=== PATIENT | male | born 1985 | race Caucasian/White ===

== ENCOUNTER 2018-12-01 16:23 | Inpatient (IN) ==
[2018-12-01 17:52] LABS: HEMATOCRIT 41.3 % (42.0-52.0); HEMOGLOBIN 13.6 g/dL (14.0-18.0); MCH 30.5 PG (27-31); MCHC 32.9 g/dL (33-37); MCV 92.6 FL (81-99); MPV 8.4 FL (7.4-10.4); RBC 4.46 XMIL (4.7-6.1); RDW 12.9 % (11.5-14.5); WBC 7.69 X1000 (4.8-10.8)
[2018-12-01 18:29] LABS: AGAP 12; ALB/GLOB RATIO 1.4; ALBUMIN 4.4 g/dL (3.5-5.0); ALKALINE PHOSPHATASE 73 U/L (32-122); BUN 15 mg/dL (8-22); CALCIUM 9.1 mg/dL (8.8-10.2); CHLORIDE 103 mmol/L (98-107); COSMO 280; ESTIMATED GFR > 60; GLUCOSE 88 mg/dL (70-104); GOT 19 U/L (10-34); GPT 29 U/L (10-44); POTASSIUM 4.1 mmol/L (3.5-5.1); SODIUM 140 mmol/L (136-145); TCO2 25 mmol/L (25-35); TOTAL BILIRUBIN < 0.15 mg/dL (0.20-1.00); TOTAL PROTEIN 7.5 g/dL (6.3-8.3)
[2018-12-01] MEDS ORDERED: TYLENOL PO PRN (18:38)
[2018-12-01] MEDS ORDERED: ZOFRAN PO PRN (18:41)
[2018-12-01] MEDS: D5 1/2 NS 1,000 ML IV SCH (19:05)
[2018-12-01] MEDS: NORCO-10 PO PRN (20:37)
[2018-12-01] MEDS: MAXIPIME 2 GM in NS 100 ML IV SCH (20:53)
[2018-12-01 21:27] LABS: URINE SOURCE CLEAN CATCH
[2018-12-01 21:42] LABS: BILIRUBIN URINE NEGATIVE (NEGATIVE); BLOOD URINE NEGATIVE (NEGATIVE); COLOR YELLOW; GLUCOSE URINE NEGATIVE (NEGATIVE); KETONE URINE NEGATIVE (NEGATIVE); LEUKOCYTES URINE NEGATIVE (NEGATIVE); NITRITE URINE NEGATIVE (NEGATIVE); PH URINE 6.5; PROTEIN URINE TRACE mg/dL (NEGATIVE); SP GRAVITY URINE 1.023; TURBIDITY URINE CLEAR (CLEAR); UROBILINOGEN URINE NORMAL (NORMAL)
[2018-12-01 21:44] LABS: UR EPITHELIAL CELLS <10 /HPF (<10); URINE BACTERIA NEGATIVE /HPF; URINE RBC <10 /HPF (<10); URINE WBC <10 /HPF (<10)
[2018-12-02] MEDS: MAXIPIME 2 GM in NS 100 ML IV SCH (08:04)
[2018-12-02] MEDS ORDERED: MAXIPIME 2 GM in NS 100 ML IV SCH ×2 (09:00→16:00)
--- NOTE | 2018-12-02 09:21 | INFECTIOUS DISEASE CONSULT REP ---
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 In part, it may be due to the fact that he is on his feet quite a bit. He works at [employer], and the feeling was that his shoes that he wears might be colonized with Pseudomonas and causing him to have an infection of both feet. The patient also is a cigarette smoker, and possibly due to the vascular affects of smoking, the antibiotic that we have given him in the past for Pseudomonas may not be present in high enough doses due to the vascular affects of cigarette smoking. PAST MEDICAL HISTORY/REVIEW OF SYSTEMS: Eyes and ears: No difficulty seeing or hearing. Respiratory: No cough or shortness of breath. Cardiac: No chest pain or palpitations. GI: No nausea, vomiting, or diarrhea. Genitourinary: No dysuria or flank pain. Endocrine: The patient is not a diabetic, and he does not have thyroid disease. Bones, joints, muscles : No swollen joints or myalgias. Neurologic: No seizures. No recent loss of motor or sensory function. Integument: See present illness. PREVIOUS HOSPITALIZATIONS AND OPERATIONS: He has been admitted before with infection of his feet as mentioned above. He also was admitted to the hospital because of a tooth infection. He had a fracture of his left arm and required surgery, which included having a plate and screws put on his arm. MEDICAL DISEASES: Positive for obesity. Negative for diabetes. INFECTIOUS DISEASE HISTORY: Positive for recurrent foot infections. Negative for pneumonia and UTI. FAMILY HISTORY: Positive for diabetes mellitus, hypertension, myocardial infarction, stroke, and cancer. SOCIAL HISTORY: The patient lives in [place]. He works at [employer]. He smokes cigarettes and drinks alcoholic beverages, but does not abuse drugs. He is . He has cats and a dog for pets. ALLERGIES: As mentioned above, he is allergic to penicillin, but he has tolerated Keflex and cefepime well in the past. HOME MEDICATIONS: The patient takes aspirin/acetaminophen-caffeine. He also takes Zantac. PHYSICAL EXAMINATION: Vital Signs: Temperature is 97.8 degrees, pulse 76, respirations 16, blood pressure 130/93. The patient is 5 feet 6 inches tall, weighs 256 pounds. General: This is an obese, young male. He is in no acute distress. HEENT: He can hear my spoken words and see near objects. He does not have any white patches on his tongue. Neck: No stiffness. Lungs: Clear to auscultation. Cardiovascular: Regular heart rate. Peripheral pulses are palpable. Abdomen: Soft and nontender. Extremities: Both feet have skin that is peeling off the feet. The underlying tissue is dark red in color. There is no odor to his feet, and I did not see any purulence. Neurologic: The patient is alert. He can move his extremities. There is no tremor. His sensation is intact to touch. His memory, as regarding his medical history , was good. CONCLUSION: The patient is admitted to the hospital with recurrent Pseudomonas infection of both feet. He is scheduled to have surgery today by Dr. Lagunas. RECOMMENDATION: I switched the patient from cefepime to ceftazidime because the latter antibiotic has a lower RADHA against Pseudomonas. As mentioned above, I switched the patient to ceftazidime. I have requested that the nurse observe the patient during the first dose. The patient is allergic to penicillin. He had angioedema and urticaria. However, he has received cefepime in the past, and in fact, he has had 2 doses of cefepime already in the hospital here, and he has also had Keflex before, and he tolerates them all very well, so I suspect he will tolerate ceftazidime as well , and just to make sure everything goes okay, I have requested that the nurse observe the patient during the first dose of ceftazidime. Thank you for the consult. cc: MD Solitario Moran MD MTDD
[2018-12-02] MEDS ORDERED: SUFENTA ONE (10:12)
[2018-12-02] MEDS ORDERED: DIPRIVAN 1% ONE (10:12)
[2018-12-02] MEDS ORDERED: DECADRON ONE (10:42)
[2018-12-02] MEDS ORDERED: ZOFRAN ONE (10:42)
[2018-12-02] MEDS ORDERED: MORPHINE ONE ×3 (11:16→11:36)
[2018-12-02] MEDS ORDERED: LR 500 ML ONE (11:27)
[2018-12-02] MEDS: NORCO-10 ONE (11:32)
--- NOTE | 2018-12-02 11:40 | OPERATIVE NOTE ---
PROCEDURE DATE: 12/02/2018 PREOPERATIVE NOTE: Recurrent Pseudomonas infection both feet, right worse than left. PROCEDURE: Debridement. DESCRIPTION OF PROCEDURE: The patient was brought to the operating room. After satisfactory induction of IV and LMA anesthesia, both feet were prepped and draped in the appropriate manner. On examination, the skin is excoriated between all 5 toes as well as on the distal forefoot with necrotic skin and red, angry sub-dermis. There is no full-thickness, no muscle or subcutaneous involvement seen. The left foot is similar, but not quite as severe. Both feet were debrided of necrotic skin and scrubbed with Betadine scrub brushes. Betadine- soaked Kerlix was subsequently threaded in between the toes and wrapped and covered with another Kerlix. Patient was subsequently awakened and extubated in the operating room and transferred to Recovery. There was no blood loss. cc: Solitario Lagunas MD
[2018-12-02] MEDS ORDERED: NS 250 ML ONE (13:55)
[2018-12-02] MEDS: NORCO-10 PO PRN ×3 (14:12→22:12)
[2018-12-02 14:48] LABS: INR 0.86; PROTIME 12.5 Seconds (11.0-16.0)
[2018-12-02] MEDS: TAZIDIME 2 GM/NS 2 GM/100 ML IVPB IV SCH (16:19)
[2018-12-02] MEDS: D5 1/2 NS 1,000 ML IV SCH (19:15)
[2018-12-02] MEDS: PERIDEX MT SCH (22:11)
[2018-12-03] MEDS: TAZIDIME 2 GM/NS 2 GM/100 ML IVPB IV SCH ×3 (00:35→15:17)
[2018-12-03] MEDS: NORCO-10 ONE (04:15)
[2018-12-03] MEDS: NORCO-10 PO PRN ×2 (08:34→12:32)
[2018-12-03] MEDS: PERIDEX MT SCH (08:35)
--- NOTE | 2018-12-03 09:26 | INFECTIOUS DISEASE PROGRESS NO ---
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 Yesterday, he underwent debridement of both feet, performed by Dr. Lagunas. The patient is going to have a PICC installed today, and sent home on ceftazidime 2 grams IV every 8 hours for 2 weeks. Then, I have requested that the patient come to my office in 2 weeks for a followup appointment. At the time of the followup appointment, if the patient's feet look really good, we will stop the antibiotic and remove the PICC. However, if more antibiotics are needed, then we will continue with the IV antibiotics. Unfortunately, the organism is resistant to Levaquin, so we will treat the patient's patient's pseudomonas with IV ceftazidime. cc: MD Solitario Moran MD MTDD
[2018-12-03 11:34] VITALS: BP 141/79
== END 2018-12-03 16:56 | disposition home health service (06) | DRG 603 ==
LOC: 4N 16:23
PROVIDERS: ADMIT Surgery; ATTEND Surgery
CPT/HCPCS: 36569; 80053; 81001; 85027; 85610; 94761; 94799; A9270; J0692; J0713; J1100; J2270; J2405; J7050; J7120

== ENCOUNTER 2019-02-10 17:04 | Inpatient (IN) ==
[2019-02-10 17:32] LABS: BASO# 0.03 X1000 (0.0-0.2); BASO% 0.6 % (0.0-0.8); EOS# 0.39 X1000 (0.0-0.7); EOS% 7.2 % (0.0-10.0); HEMATOCRIT 44.3 % (42.0-52.0); HEMOGLOBIN 15.1 g/dL (14.0-18.0); LYMPH# 2.23 X1000 (1.2-3.4); LYMPH% 41.4 % (20.5-51.1); MCH 29.7 PG (27-31); MCHC 34.1 g/dL (33-37); MCV 87.2 FL (81-99); MONO# 0.39 X1000 (0.11-0.59); MONO% 7.2 % (1.7-9.3); MPV 8.7 FL (7.4-10.4); NEUT# 2.35 X1000 (1.4-6.5); NEUT% 43.6 % (42.2-75.2); PLT 397 X1000 (130-400); RBC 5.08 XMIL (4.7-6.1); RDW 12.7 % (11.5-14.5); WBC 5.39 X1000 (4.8-10.8)
[2019-02-10 17:45] LABS: AGAP 13; ALB/GLOB RATIO 1.4; ALBUMIN 4.7 g/dL (3.5-5.0); ALKALINE PHOSPHATASE 78 U/L (32-122); BUN 14 mg/dL (8-22); CALCIUM 9.6 mg/dL (8.8-10.2); CHLORIDE 101 mmol/L (98-107); COSMO 276; CREATININE 0.8 mg/dL (0.7-1.2); ESTIMATED GFR > 60; GLUCOSE 88 mg/dL (70-104); GOT 34 U/L (10-34); GPT 50 U/L (10-44); SODIUM 138 mmol/L (136-145); TCO2 24 mmol/L (25-35); TOTAL BILIRUBIN 0.31 mg/dL (0.20-1.00)
[2019-02-10] MEDS ORDERED: LOVENOX 1 MG/KG SUBQ ONE (19:42)
[2019-02-10] MEDS ORDERED: LOVENOX SUBQ ONE (20:00)
--- NOTE | 2019-02-10 21:33 | Diag Imaging Result Doc PS360 ---
EXAM: CT ANGIOGRM PULMONARY ARTERIES 02/10/2019 HISTORY: SOB TECHNIQUE: This exam was performed using automated exposure control, adjustment of mA or kV according to patient size, and/or use of iterative reconstruction technique. COMMENT: 3-D MIPS were performed. There are no previous studies available for comparison. There are no filling defects in the pulmonary arteries. The aorta is not distended and there is no evidence of dissection. There are no abnormal fluid collections. There is no evidence of significant adenopathy. There is what appears to be a granuloma posteriorly in the left upper lobe on image 43 there is no evidence of acute pulmonary parenchymal disease. There is minimal dependent atelectasis. The regional skeleton appears to be intact. IMPRESSION: No evidence of pulmonary emboli. Electronically signed by Ari Sanders 02/10/2019 9:30 PM
[2019-02-10] MEDS ORDERED: DEPO-MEDROL IM ONE (22:06)
--- NOTE | 2019-02-10 22:14 | PROVIDER DOCUMENTATION ---
This chart was entered by Estella Clifton Scribe, acting as scribe for Juan Glass MD. HPI-General Adult - General Chief Complaint: General Adult Stated Complaint: INFECTION? DR WOODY REFERRAL Time Seen by Provider: 02/10/19 19:15 Source: patient Allergies/Adverse Reactions: Patient Allergies Allergy/AdvReac Type Severity Reaction Status Date / Time Penicillins Allergy SWELLING Verified 05/12/18 19:43 Home Medications: Home Medication List Medication Instructions Recorded Confirmed Last Taken Type Ranitidine [Zantac] 150 tab PO DAILY 05/12/18 01/23/19 01/23/19 History Ibuprofen 200 mg PO DAILY PRN 01/23/19 01/23/19 01/23/19 History - History of Present Illness -Gen Adult Nature of Presenting Problems: 33 yom c/o pt has hx of bilat cellulitis and had 2x sx; one in sep 2018 and another in nov 2018. pt is followed by dr. woody. pt had picc line and was taking cefazolin x 2 weeks, pt noticed [id number] last night he was starting to get rash on arms, chest and shoulders. pt had home health come in this am and change picc line and after seeing rash, homehealth referred him to dr. woody and dr. woody's office told pt to come to er. pt had picc line removed and ultrasound done on left arm and it showed a clot. pt woke up this am w/chest tightness, throat tightness, cough and sob. pt also takes heparin x 4 and ibuprofen. pt denies fever and chills. Review of Systems - Adult - REVIEW OF SYSTEMS - ADULT Constitutional: reports: no symptoms reported. denies: chills, fever, fatique Eyes: reports: no symptoms reported Ears, Nose, Mouth & Throat: reports: see HPI, throat pain (tightness). denies: ear pain, sinus problem, nose pain, loose teeth Cardiovascular: reports: see HPI, chest pain (tightness). denies: heart murmur, irregular heart rate, orthopnea Respiratory: reports: see HPI, cough, shortness of breath. denies: dyspnea on exertion, excessive sputum production, hemoptysis Gastrointestinal: reports: no symptoms reported. denies: abdominal pain, diarrhea, nausea, vomiting Genitourinary: reports: no symptoms reported. denies: dysuria, discharge, frequency Musculoskeletal: reports: no symptoms reported Integumentary: reports: see HPI, rash (erythemic rash on bilat arms, chest, shoulders, back and bilat feet.). denies: hives, itching, skin sores/ulcer, skin thickening Neurological: reports: no symptoms reported Psychiatric: reports: no symptoms reported Endocrine: reports: no symptoms reported Hematologic/Lymphatic: reports: no symptoms reported Allergic/Immunologic: reports: no symptoms reported All Other Systems: Reviewed and Negative Past History - Adult - PAST MEDICAL HISTORY-ADULT Review of Records: reports: Old Records Reviewed, Nursing Assessment Review, Medications Reviewed, Social history reviewed & non-contributory. Major Childhood Illnesses: reports: denies history Cardiovascular: reports: HTN Respiratory: reports: denies history Gastrointestinal: reports: GERD Obstetrical/Gynecological: reports: denies history Genitourinary: reports: denies history Musculoskeletal: reports: denies history Neurological: reports: denies history Endocrine/Immune: reports: denies history Other Conditions: reports: other (cellulitis bilat toes) - PRIOR SURGERIES/PROCEDURES Surgical/Procedure History: reports: other - IMMUNIZATION STATUS Childhood Immunizations: See Nurse Assessment Flu Vaccine: See Nurse Assessment - FAMILY HISTORY Family History: reviewed, not pertinent - SOCIAL HISTORY Smoking: cigarettes, other (former) Substance Use: alcohol Alcohol Use Frequency: occasionally Physical Exam-General - PHYSICAL EXAM-ADULT Initial Vital Signs Reviewed: Yes - CONSTITUTIONAL General Appearance: appears well, alert, no apparent distress, obese. negative: cachetic, anxious, obtunded - EYES Eyes: PERRL/EOMI, pink conjunctivae - HEAD, EARS, NOSE, MOUTH & THROAT HENMT: normocephalic/atraumatic, moist mucous membranes, normal ENT inspection, TMs normal, pharynx normal. negative: angioedema, pharyngeal erythema, tonsillar exudate - NECK Neck: non-tender, full range of motion, supple, normal inspection - RESPIRATORY Respiratory: chest non-tender, lungs clear, normal breath sounds, no pleuratic chest pain, no respiratory distress, no accessory muscle use. negative: respiratory distress, decreased breath sounds, accessory muscle use - CARDIOVASCULAR Cardiovascular: normal peripheral pulses, regular rate, rhythm, no edema, no gallop, no JVD, no murmur. negative: JVD, bradycardia, tachycardia - GASTROINTESTINAL (ABDOMEN) Abdominal Exam: normal bowel sounds, non tender, soft - LYMPHATIC Lymphatic: no adenopathy - MUSCULOSKELETAL Back Exam: normal inspection, no CVA tenderness, no vertebral tenderness Extremity: normal range of motion, non-tender, normal inspection Peripheral Pulses: radial (R): 2+, radial (L): 2+ - SKIN Integumentary: normal color, normal turgor, warm/dry, erythema (erythematic rash on chest, bilat feet, arms, back and shoulders), rash. negative: ecchymosis, swelling, tenderness - NEUROLOGIC Neurologic: grossly normal, no motor/sensory deficits - PSYCHIATRIC Psych/Mental Status: normal mood/affect, normal thought content, normal thought process, oriented x 3 Progress - PLAN OF CARE/RESULTS Progress/Plan/Lab Results: Vital Signs - 8 hr 02/10/19 17:10 Temperature 98.5 F Pulse Rate 81 Respiratory Rate 20 Blood Pressure 135/87 O2 Sat by Pulse Oximetry 98 Laboratory Results - last 24 hr 02/10/19 02/10/19 17:15 17:15 WBC 5.39 RBC 5.08 Hgb 15.1 Hct 44.3 MCV 87.2 MCH 29.7 MCHC 34.1 RDW Std Deviation 12.7 Plt Count 397 MPV 8.7 Immature Gran % (Auto) 0.0 Neut % (Auto) 43.6 Lymph % (Auto) 41.4 Bourbon % (Auto) 7.2 Eos % (Auto) 7.2 Baso % (Auto) 0.6 Immature Gran # (Auto) 0.00 Neut # (Auto) 2.35 Lymph # (Auto) 2.23 Bourbon # (Auto) 0.39 Eos # (Auto) 0.39 Baso # (Auto) 0.03 Sodium 138 Potassium 4.0 Chloride 101 Carbon Dioxide 24 L Anion Gap 13 BUN 14 Creatinine 0.8 Estimated GFR/1.73 m2 > 60 BUN/Creatinine Ratio 18 Glucose 88 Calculated Osmolality 276 Calcium 9.6 Total Bilirubin 0.31 AST 34 ALT 50 H Alkaline Phosphatase 78 Total Protein 8.0 Albumin 4.7 Globulin 3.3 Albumin/Globulin Ratio 1.4 Orders Category Date Time Status CBC WITH ELECTRONIC DIFF [HEME] Stat Lab 02/10/19 17:15 Completed COMPREHENSIVE METABOLIC PANEL [CHEM] Stat Lab 02/10/19 17:15 Completed A/P: DVT in Left upper arm, prox axilary vein, cellulitis bilateral feet on cefazolin, allergic rxn to AB. Vitals stable. given lovenox 1 mg / kg. will admit Result Diagrams: 02/10/19 17:15 02/10/19 17:15 - REASSESSMENT Reassessment #1 Time Reassessed: 20:04 (Dr. Glass discussed ultrasound done at vascular earlier today) Status: unchanged - CT/MRI 1 CT Study: Angiogram (EXAM: CT ANGIOGRM PULMONARY ARTERIES 02/10/2019 HISTORY: SOB TECHNIQUE: This exam was performed using automated exposure control, adjustment of mA or kV according to patient size, and/or use of iterative reconstruction technique. COMMENT: 3-D MIPS were performed. There are no previous studies available for comparison. There are no filling defects in the pulmonary arteries. The aorta is not distended and there is no evidence of dissection. There are no abnormal fluid collections. There is no evidence of significant adenopathy. There is what appears to be a granuloma posteriorly in the left upper lobe on image 43 there is no evidence of acute pulmonary parenchymal disease. There is minimal dependent atelectasis. The regional skeleton appears to be intact. IMPRESSION: No evidence of pulmonary emboli. Electronically signed by Ari Sanders 02/10/2019 9:30 PM) Impression: Normal Comparison with other Films: no prior study Departure - Departure Date of Disposition Decision: 02/10/19 Time of Disposition Decision: 22:13 DIAGNOSIS: DVT of axillary vein, acute, Cellulitis Disposition: ADMITTED INPATIENT 09 Certified Medical Emergency: Emergent Condition: Stable Additional Freetext Instructions: We have examined and treated you today on an emergency basis only. This was not a substitute for, or an effort to provide, complete medical care. In most cases, you must let your doctor check you again. Tell your doctor about any new or lasting problems. We cannot recognize and treat all injuries or illnesses in one Emergency Department visit. If you had special tests, such as X-rays or CT scans, will be reviewed by radiologist and will call you if there are any new suggestions Follow up with primary care provider in 1 to 2 days if no improvement. If you do not have a primary care provider, you need to choose one as soon as possible. Take medicines as prescribed. Monitor for any side effects or adverse events from medications. If any side effect, adverse event or rash develops, or if you suspect any other adverse reaction to the medication, then discontinue the medication immediately and contact clinic /PCP or go to the nearest ER. Narcotic meds / sedative meds instruction - patent advised not to drive, operate any machinery or go into water after taking meds as it may impair mental ability to react to the situation in an appropriate manner. Continue other current medicines. Follow up with PCP within 24-48 hours, or sooner if symptoms worsen or fail to improve. Patient / guardian verbalizes understanding of treatment plan, medication, and side effects and agrees with treatment plan. Patient leaves ER in stable condition and ambulatory state. Return to ER as needed. Discharge instructions reviewed verbally and given to patient in written form. Follow up with primary care provider. Referrals and Follow-Ups: Kvng Woody MD [Primary Care Provider] - - Critical Care Note This patient required my direct & personal management of CC.: No Attestation - Physician/ JOSAFAT Attestation Patient care was provided by Advanced Practice Provider:: No The physician spent face to face time with patient:: Yes Advanced Practice Provider documentation review:: Supervising physician onsite and consulted in the evaluation and care of this patient. The physician did have a face to face encounter with the patient. This chart was documented by the indicated scribe, (Estella Clifton, Concha) and accurately reflects the services I performed and decisions made by me, Juan Glass MD, as attested by the provider's signature.
[2019-02-10] MEDS ORDERED: ZOFRAN IV PRN (23:09)
[2019-02-10] MEDS ORDERED: TYLENOL PO PRN (23:09)
[2019-02-10] MEDS ORDERED: CUBICIN 600 MG in NS 100 ML IV SCH (23:09)
[2019-02-10] MEDS ORDERED: BENADRYL PO ONE (23:09)
--- NOTE | 2019-02-11 01:12 | HISTORY AND PHYSICAL ---
This is LUIS A Harris dictating an H and P for Vivek Fonseca MD. PRIMARY CARE PROVIDER: None. INFECTIOUS DISEASE: Kvng Woody MD. GENERAL SURGEON: Solitario Lagunas MD. HISTORY OF PRESENT ILLNESS: Mr. Mo is a 33-year-old male who carries a past medical history bilateral cellulitis to both feet that started back in September of 2018. He underwent an I and D at that time with Dr. Lagunas, was discharged with a PICC line and IV antibiotics. Once those were done his infection came back again in October for which he underwent another I and D and placed back on IV antibiotics. He noticed that his skin started peeling off his toes again, and has now undergone another round of antibiotics this time with ceftazidime. He woke up this a.m. and noticed that he had developed a rash on his bilateral arms, chest, shoulders, and abdominal area, and felt like he had some coming up to his bilateral lower extremities. He came in to see Dr. Woody after he was evaluated by [facility]. He was concerned for the size of his arm. He was sent to the ED and had an ultrasound done that showed a DVT to his left upper extremity. The PICC line was discontinued. He was started on full dose Lovenox in the ER. He was given IM steroids for his rash. He had complained of some chest tightness and throat tightness, as well as a cough that had been ongoing for several weeks now. However, he denies any fever or chills. I did not look at his lower extremities as he has them wrapped up. We will admit him to the medical floor. Continue on a regular diet. Continue p.o. Benadryl and after speaking with Dr. Fonseca we will place him on Cubicin for now. He does have an allergy to penicillin. We will place him on p.o. prednisone. His most recent cultures grew out Pseudomonas, Streptococcus agalactiae group B and E. coli that is resistant to Levaquin. We will continue with further evaluation and treatment on the medical floor. PAST MEDICAL HISTORY: Bilateral foot cellulitis that has been ongoing since September of 2018. This is his third round of antibiotics status post 2 debridements. The patient has dealt with sweaty feet and athlete's feet his entire life PAST SURGICAL HISTORY: 1. Two I and D's to his bilateral feet by Dr. Lagunas. 2. PICC line placement to his left upper extremity. SOCIAL HISTORY: The patient is single. No alcohol, tobacco or illicit drug use. FAMILY HISTORY: Reviewed. Noncontributory. ALLERGIES: Penicillin which causes swelling. HOME MEDICATIONS: Ceftazidime IV per Dr. Woody. The risks have not been reconciled. REVIEW OF SYSTEMS: A 14-point review of systems completely negative except for those mentioned in the HPI. PHYSICAL EXAMINATION: VITAL SIGNS: Temperature 98.5 degrees, heart rate 85, respirations 15, blood pressure 146/94, O2 saturation is 95% on room air. GENERAL: Mr. Mo is a pleasant male who is sitting up on the stretcher in no acute distress. HEENT: Atraumatic and normocephalic. PERRL. NECK: Supple. Trachea midline. CARDIOVASCULAR: S1 and S2 appreciated. No murmurs, gallops, or rubs noted. RESPIRATORY: Lung sounds clear bilaterally. GASTROINTESTINAL: Soft, nontender, and nondistended. Positive bowel sounds x4 quadrants. LOWER EXTREMITIES: Negative for edema. Bilateral pedal pulses are palpable. He does have what appears to be petechiae to his lower extremities. SKIN: The patient does have a rash noted to his bilateral upper extremities, chest, neck, abdomen, and possibly coming up to his lower extremities. NEUROLOGIC: No focal deficits noted. DIAGNOSTIC DATA: Per ED report his vascular study showed a left upper extremity DVT. Pulmonary arteriogram, no evidence of PE and no acute pulmonary parenchymal disease. LABORATORY DATA: White count 5, hemoglobin and hematocrit 15 and 44, platelet count is 397,000. Sodium 138, potassium 4.0, BUN 14, creatinine 0.8, blood glucose is 88, ALT is 50. ASSESSMENT AND PLAN: 1. Left upper extremity deep venous thrombosis. The patient was given full-dose Lovenox. We will continue with full-dose Lovenox and transition him to by mouth in the morning. 2. Allergic reaction to his ceftazidime. He does have an allergy to penicillin, which causes swelling. He is broke out in a rash on his upper extremities, neck, chest, I believe he started to develop some to his lower extremities. He did report some chest tightness and shortness of breath the night prior; however, that has since subsided. He was given intramuscular steroids. We will continue with by mouth steroids and Benadryl. 3. Bilateral foot cellulitis that has grown out Pseudomonas group B and Escherichia coli. Again after speaking with Dr. Fonseca and the patient's allergy to penicillin, we will start him on Cubicin and await Dr. Woody' recommendation for further treatment. Consult Wound Care. 4. Further recommendation to follow physician evaluation, laboratory and diagnostic data. Dictated by LUIS A Harris for Vivek Fonseca MD I have performed a face to face diagnostic evaluation. Labs/ Xrays- reviewed. Exam- chest - clear, Ext- left UE- tenderness A/P- LUE DVT; Bilateral LE cellulitis: Admit, Lovenox, , IV ABX, Infectious Disease consult. Dr. Fonseca cc: MD Solitario Calderon MD Leroy F. Harris, MD [facility]
[2019-02-11 06:42] LABS: BASO# 0.03 X1000 (0.0-0.2); BASO% 0.5 % (0.0-0.8); EOS# 0.44 X1000 (0.0-0.7); HEMATOCRIT 41.1 % (42.0-52.0); LYMPH# 2.77 X1000 (1.2-3.4); LYMPH% 50.5 % (20.5-51.1); MCH 29.9 PG (27-31); MCHC 34.1 g/dL (33-37); MCV 87.8 FL (81-99); MONO# 0.52 X1000 (0.11-0.59); MONO% 9.5 % (1.7-9.3); MPV 8.8 FL (7.4-10.4); NEUT# 1.73 X1000 (1.4-6.5); NEUT% 31.5 % (42.2-75.2); PLT 400 X1000 (130-400); RBC 4.68 XMIL (4.7-6.1); RDW 12.7 % (11.5-14.5); WBC 5.49 X1000 (4.8-10.8)
[2019-02-11] MEDS: NORCO-7.5 PO PRN ×2 (07:23→17:56)
[2019-02-11 07:24] LABS: AGAP 12; ALB/GLOB RATIO 1.4; ALKALINE PHOSPHATASE 69 U/L (32-122); BUN 16 mg/dL (8-22); CALCIUM 8.9 mg/dL (8.8-10.2); CHLORIDE 103 mmol/L (98-107); COSMO 279; CREATININE 0.9 mg/dL (0.7-1.2); ESTIMATED GFR > 60; GLUCOSE 102 mg/dL (70-104); GOT 30 U/L (10-34); GPT 45 U/L (10-44); MAGNESIUM 2.1 mg/dL (1.5-2.7); SODIUM 139 mmol/L (136-145); TCO2 24 mmol/L (25-35); TOTAL BILIRUBIN < 0.15 mg/dL (0.20-1.00); TOTAL PROTEIN 6.9 g/dL (6.3-8.3)
[2019-02-11] MEDS: BENADRYL PO PRN ×2 (07:24→17:56)
[2019-02-11] MEDS ORDERED: LOVENOX SUBQ SCH (08:00)
[2019-02-11] MEDS: ZANTAC PO SCH ×2 (08:12→21:56)
[2019-02-11] MEDS: AZACTAM 2 GM in NS 100 ML IV SCH ×2 (09:58→17:06)
[2019-02-11 13:46] LABS: HEMOGLOBIN A1C 5.4 % (4.8-6.0)
--- NOTE | 2019-02-11 14:25 | INFECTIOUS DISEASE PROGRESS NO ---
DATE: 02/11/2019 PRESENT ILLNESS: Mr. Mo was receiving outpatient IV cefepime for a Pseudomonas infection to his bilateral toes when he had an allergic reaction that developed yesterday, as well as swelling to his left upper arm where the PICC line was, and drainage from that left arm PICC site. He was found to have a DVT to the left upper extremity and was sent to the emergency room. MEDICATIONS: He has been on cefepime 2 g IV every 8 hours for the past two and half weeks. We have replaced that with aztreonam 2 g IV every 8 hours. PHYSICAL EXAMINATION: Vital Signs: Temperature is 98.1 degrees, pulse rate 64, respiratory rate 22, blood pressure 110/60, O2 saturation is 100% on room air. General: This is a morbidly obese, otherwise fairly healthy appearing young man. He is sitting up in the bed, currently in no acute distress. HEENT: Atraumatic, normocephalic. Oral mucous membranes are pink and moist. Conjunctivae are pink. Neck: Supple. Trachea is midline. Cardiovascular: Heart rate and rhythm are regular. Normal sinus rhythm on the monitor. Respiratory: Lung sounds are clear to auscultation bilaterally. Abdomen: Soft, obese, and nontender. Bowel sounds are active. Neurologic: He is awake, alert, oriented, able to move all extremities independently. Integumentary: The left upper arm PICC line has been removed and there is some mild swelling to that area. His bilateral toe infections have improved tremendously from when I saw him in the office last week. There is still some erythema, moistness between the toes, and drainage. However, they look much better. LABORATORY AND X-RAY: Today, his white count is 5.49, hemoglobin 14, platelet count 400,000. Creatinine is 0.9. Estimated GFR is greater than 60. Total bilirubin is less than 0.15, AST is 30, ALT is 45, alkaline phosphatase 69. So far, the culture of his left arm PICC line has shown no growth on the preliminary report. He has previously grown Pseudomonas to his feet bilaterally, as well as a group B strep and Escherichia coli. Pulmonary arteriogram done last night shows no evidence of PE. ASSESSMENT AND PLAN: Mr. Mo is being treated for a Pseudomonas infection to his toes which is complicated by peripherally inserted central catheter line problems with left upper extremity deep venous thrombosis and drainage to the peripherally inserted central catheter line site, as well as an allergic reaction to cefepime, which has been added to his allergy list. We have started him on aztreonam. He will need 2 g intravenous every 8 hours at home and the plan is to give this to him through peripheral intravenous lines rather than inserting another central line. Orders have been put in for Torri to talk to him about receiving this medication at home for 3 weeks, after which time we will see him in the office and hopefully take out his peripheral line. The patient has also said that he has had some pain to his left calf so Dr. Roberto has put in orders to check his legs for deep venous thrombosis. He has been started on Xarelto. These plans have been discussed with and recommended by Dr. Woody. COMORBIDITIES: For Mr. Mo include morbid obesity and recurrent bilateral foot cellulitis with two debridements since September [address] Lagunas. Dictated by LUIS A Holt for Kvng Woody MD cc: Kvng Woody MD [facility]
[2019-02-11] MEDS: XARELTO PO SCH (21:57)
--- NOTE | 2019-02-11 22:25 | PROGRESS NOTE ---
DATE: 02/11/2019 SUBJECTIVE: The patient is resting comfortably in bed, he has no complaints. OBJECTIVE: Vital Signs: Temperature 98.3 degrees, blood pressure 108/63, heart rate 65, respirations 16, O2 saturation is 100% on room air. General: This is an obese male lying in bed, in no acute distress. Heart: S1, S2 normal. Regular rate and rhythm. Lungs: Clear to auscultation bilaterally. Abdomen: Positive bowel sounds. Soft, nontender, nondistended. Extremities: The patient has cellulitis involving both feet. Neurologic: The patient is alert and oriented x4. LAB: Reviewed. ASSESSMENT AND PLAN: 1. Left upper extremity deep venous thrombosis. This is likely secondary to the PICC line that the patient had in place. We will transition the patient to Xarelto. The patient will need to be treated for at least 3 months. 2. Bilateral foot cellulitis. Continue on Azactam as directed by Dr. Woody. Arrangements have been made for the patient to continue with IV antibiotic regimen as outpatient. 3. Morbid obesity. Aware. 4. Disposition. The patient will likely be discharged home tomorrow. cc: Avelina Roberto MD
[2019-02-12] MEDS: AZACTAM 2 GM in NS 100 ML IV SCH ×2 (01:43→08:54)
[2019-02-12] MEDS: BENADRYL PO PRN ×2 (01:47→08:54)
[2019-02-12] MEDS: NORCO-7.5 PO PRN ×2 (01:47→08:54)
[2019-02-12] MEDS: ZANTAC PO SCH (08:54)
[2019-02-12] MEDS: XARELTO PO SCH (08:54)
[2019-02-12 12:02] VITALS: BP 135/69
--- NOTE | 2019-02-12 13:21 | Extremity Venous Study ---
PROCEDURE NAME: Venous U/S Bilateral Legs - 02/11/2019 REQUESTING PHYSICIAN: Dr. Roberto. STOCK CLERK: Gerhard. INDICATIONS: Pain and swelling. EQUIPMENT: eROIid E9 ultrasound system with a 9 L-D transducer. FINDINGS: Images of the bilateral lower extremity venous systems were obtained in both sagittal and transverse planes. Doppler was used to identify veins for spontaneity, phasicity, respiratory excursion, and digital augmentation. RESULTS: Normal venous compression. Normal venous flow. No obvious superficial or deep venous thrombosis noted. There also appears to be some slightly prominent inguinal nodes bilaterally. INTERPRETATION: Essentially normal bilateral lower extremity venous study. There appear to be some slightly enlarged lymph nodes bilaterally in the inguinal region. Try to recommend handling clinically and get a dedicated ultrasound if clinically needed. cc: MD Avelina Vargas MD
--- NOTE | 2019-02-14 11:02 | DISCHARGE SUMMARY ---
ADMISSION DATE: 02/10/2019 DISCHARGE DATE: 02/12/2019 FINAL DISCHARGE DIAGNOSES: 1. Left upper extremity deep venous thrombosis secondary to a PICC line. 2. Bilateral foot cellulitis. 3. Morbid obesity. CONSULTATIONS REQUESTED DURING THIS HOSPITAL STAY: ID consultation with Dr. Woody. IMAGIN. Pulmonary arteriogram which revealed no evidence of pulmonary emboli. 2. Bilateral lower extremity venous Doppler which revealed no evidence of DVT. HOSPITAL COURSE: Mr. Mo is a 33-year-old male with a history of morbid obesity and recurrent bilateral foot cellulitis, who was admitted after he was found to have swelling in his left upper extremity where he had a PICC line. The patient was sent to the vascular lab where he underwent a left upper extremity venous Doppler that revealed on axillary DVT. The patient was admitted to the hospitalist service, and the PICC line was removed. The patient was started on full-dose Lovenox. The patient was also noted to have cellulitis involving both feet so Dr. Woody who was consulted since he has been following the patient on an outpatient basis. It was decided to switch the patient to IV Azactam, and to leave the PICC line out, and to use peripheral IVs for administering IV antibiotic therapy. The arrangements were made for the patient to continue with IV antibiotic therapy as outpatient through home health. The patient was also transitioned to Xarelto as an anticoagulant. The patient continued to improve clinically and was cleared for discharge home on 02/12/2019. DISCHARGE MEDICATIONS: 1. Azactam 2 g IV every 8 hours. 2. Xarelto 15 mg oral twice a day for 20 days. 3. Xarelto 20 mg oral daily to start on 03/04/2019. 4. Zantac 150 mg oral daily. 5. Marble 7.5/325 one tab oral every 6 hours p.r.n. for pain. DISCHARGE DIET: Low fat diet. ACTIVITY: As tolerated. FOLLOWUP INSTRUCTIONS: The patient will need to follow up with Dr. Kvng Woody as scheduled. The patient has also been advised to find a primary care physician that he can follow up with within the next 1 to 2 weeks. cc: Avelina Roberto MD
== END 2019-02-12 15:30 | disposition home health service (06) | DRG 315 ==
LOC: ED 17:04 → EDIPHOLD 22:38 → SUATTDRO 22:38 → 4N 02-11 00:07
PROVIDERS: ATTEND Internal Medicine
CPT/HCPCS: 71275; 80053; 82784; 83036; 83735; 85025; 93970; 96372; 96374; 99285; A9270; J0878; J1040; J1650; Q9967; S0073